=== PATIENT | male | born 2000 | race American Indian/Alaskan Native ===

== ENCOUNTER 2020-11-23 22:03 | Emergency (ER) | payer BC ==
[2020-11-23] MEDS ORDERED: Silver Sulfadiazine 1% Crm 50 GM Tube TOP ONE (23:06)
[2020-11-23] MEDS ORDERED: Cephalexin 500 MG Cap PO ONE (23:06)
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
== END 2020-11-23 23:22 | disposition home or self-care (01) ==
LOC: DL.ED 22:03
DX: T23.241A Burn of second degree of multiple right fingers (nail), including thumb, initial encounter (principal); T23.271A Burn of second degree of right wrist, initial encounter; T22.10XA Burn of first degree of shoulder and upper limb, except wrist and hand, unspecified site, initial encounter; X08.8XXA Exposure to other specified smoke, fire and flames, initial encounter
CPT/HCPCS: 16000; 99283; 99283-25; A9270-GY

== ENCOUNTER 2021-11-28 05:09 | Emergency (ER) | payer BC, OTHER ==
[2021-11-28] MEDS ORDERED: Sodium Chloride 0.9% 10 ML Syringe FLUSH PRN (05:36)
[2021-11-28] MEDS ORDERED: Diphtheria,Pertussis(Acell),Tetanus Vaccine 0.5 ML Syringe IM ONE (05:39)
[2021-11-28 05:51] LABS: ANION GAP 17.7 mEq/L (7-13); CHLORIDE,CL 106 mmol/L (98-107); SODIUM,NA 141 mmol/L (136-145)
[2021-11-28 06:13] LABS: BARBITURATES,URINE NEGATIVE (NEGATIVE); BENZODIAZEPINE,URINE NEGATIVE (NEGATIVE); MDMA (ECSTASY), URINE NEGATIVE (NEGATIVE); METHADONE,URINE NEGATIVE (NEGATIVE); METHAMPHETAMINES,URINE NEGATIVE (NEGATIVE); OPIATES,URINE NEGATIVE (NEGATIVE); TCA,URINE NEGATIVE (NEGATIVE)
[2021-11-28 06:14] LABS: AMPHETAMINES,URINE NEGATIVE (NEGATIVE); OXYCODONE,URINE NEGATIVE (NEGATIVE); PHENCYCLIDINE,URINE NEGATIVE (NEGATIVE)
[2021-11-28] MEDS ORDERED: Lidocaine 1% with EPINEPHrine 1:100,000 20 ML MDV INJECT ONE (06:32)
== END 2021-11-28 07:45 | disposition home or self-care (01) ==
LOC: DL.ED 05:09
DX: S21.432A Puncture wound without foreign body of left back wall of thorax with penetration into thoracic cavity, initial encounter (principal); Z23 Encounter for immunization; Y04.0XXA Assault by unarmed brawl or fight, initial encounter
CPT/HCPCS: 12002; 36415; 71250; 80053; 80305; 80307; 85025; 90715; 99284; J3490

== ENCOUNTER 2025-03-18 18:18 | Emergency (ER) | payer BC, MEDICAID, OTHER | END 2025-03-18 19:26 | disposition home or self-care (01) | LOC: DL.ED 18:18 | DX: B02.9 Zoster without complications (principal); Z79.899 Other long term (current) drug therapy | CPT/HCPCS: 99282; A9270 ==